=== PATIENT | male | born 1995 | race Caucasian/White ===

== ENCOUNTER 2016-05-12 09:08 | Emergency (ER) | payer OTHER ==
[~2016-05-12] VITALS: Ht 190.5 cm; Wt 86.2 kg
[2016-05-12] MEDS ORDERED: KETOROLAC 30 MG/ML VIAL (J1885) IV ONE (10:15)
[2016-05-12 10:52] LABS: BASO % 0.6 % (0.0-1.0); EOS # 0.2 K/mm3 (0.0-0.50); EOS % 4.1 % (0.0-3.0); LARGE UNSTAINED CELL # 0.1 K/mm3 (0.0-0.4); LARGE UNSTAINED CELL % 2.5 % (0.0-4.0); LYMPH # 1.9 K/mm3 (1.5-6.5); LYMPH % 37.4 % (24.0-44.0); MEAN CORPUSCULAR HEMOGLOBIN 30.3 pg (27.0-33.0); MEAN CORPUSCULAR VOLUME 86.6 fl (80.0-96.0); MONO # 0.3 K/mm3 (0.0-0.8); MONO % 5.2 % (0.0-5.0); NEUTROPHILS # 2.6 K/mm3 (1.8-7.7); NEUTROPHILS % 50.1 % (36.0-66.0); PLATELET COUNT, AUTOMATED 191 k/mm3 (150-450); RED CELL DISTRIBUTION WIDTH 11.8 % (11.5-14.5); WHITE BLOOD COUNT 5.2 K/mm3 (4.0-10.0)
--- NOTE | 2016-05-12 10:52 | REP ---
Chest two views HISTORY: Chest pain Comparison: None A calcified granuloma is present in the left lower lobe. The right lung is clear. The heart is normal in size. The pulmonary vasculature is normal in appearance. The bony structure is intact. IMPRESSION: Old granulomatous disease. Signed by Jose Alfredo Walter MD 05/12/2016 10:43 A
[2016-05-12 11:07] LABS: ANION GAP 6 MEQ/L (8-16); BLOOD UREA NITROGEN 15 MG/DL (7-18); CALCIUM LEVEL 9.3 MG/DL (8.5-10.1); CARBON DIOXIDE LEVEL 31 MEQ/L (21-32); CHLORIDE LEVEL 103 MEQ/L (98-107); CREATININE FOR GFR 0.96 MG/DL (0.70-1.30); GLOMERULAR FILTRATION RATE > 60.0 (>60); GLUCOSE, FASTING 106 MG/DL (70-105); POTASSIUM SERUM 4.5 MEQ/L (3.5-5.1); SODIUM LEVEL 140 MEQ/L (136-145)
[2016-05-12 11:16] VITALS: BP 135/66
--- NOTE | 2016-05-13 10:07 | ECGEPIP ---
Stationary ECG Study [facility] [place] - ED Test Date: 2016-05-12 Pat Name: JULIAN POSADA Department: Room: - Gender: M Section Leader: lion : 1995 Requested By: Cl Carmen Order Number: [id number] Reading MD: Cl Brown Measurements Intervals [place] Rate: 65 P: 40 CO: 126 QRS: -68 QRSD: 119 T: 48 QT: 373 QTc: 389 Interpretive Statements SINUS RHYTHM WITH SINUS ARRHYTHMIA LEFT AXIS DEVIATION RIGHT BUNDLE BRANCH BLOCK NO PRIORS Electronically Signed On 05-13-2016 10:06:47 EDT by Cl Brown
== END 2016-05-12 11:27 | disposition home or self-care (01) ==
LOC: M ED 10:31
DX: R07.9 Chest pain, unspecified (principal); W86.8XXA Exposure to other electric current, initial encounter; Y93.89 Activity, other specified; Y99.8 Other external cause status
CPT/HCPCS: 36415; 71020; 80048; 82550; 82553; 85025; 93005; 96374; 99282; J1885

== ENCOUNTER 2016-11-19 15:49 | Inpatient (IN) | payer OTHER ==
[~2016-11-19] VITALS: Ht 185.4 cm; Wt 83.0 kg
[2016-11-19 18:03] LABS: MEAN CORPUSCULAR HGB CONC 35.1 g/dl (32.0-36.5); MEAN CORPUSCULAR VOLUME 85.6 fl (80.0-96.0); RED CELL DISTRIBUTION WIDTH 12.1 % (11.5-14.5); WHITE BLOOD COUNT 7.1 10^3/uL (4.0-10.0)
[2016-11-19 18:25] LABS: METHADONE URINE NEGATIVE (NEGATIVE)
[2016-11-19 18:34] LABS: ALBUMIN 4.4 GM/DL (3.2-5.2); ALBUMIN/GLOBULIN RATIO 1.22 (1.00-1.93); ALKALINE PHOSPHATASE 97 U/L (45-117); ALT/SGPT 32 U/L (12-78); ANION GAP 7 MEQ/L (8-16); AST/SGOT 23 U/L (15-37); BILIRUBIN,DIRECT 0.1 MG/DL (0.0-0.2); BILIRUBIN,TOTAL 0.4 MG/DL (0.2-1.0); BLOOD UREA NITROGEN 13 MG/DL (7-18); CALCIUM LEVEL 9.3 MG/DL (8.5-10.1); CARBON DIOXIDE LEVEL 30 MEQ/L (21-32); CHLORIDE LEVEL 103 MEQ/L (98-107); CREATININE FOR GFR 0.97 MG/DL (0.70-1.30); GLOMERULAR FILTRATION RATE > 60.0 (>60); GLUCOSE, FASTING 102 MG/DL (70-105); POTASSIUM SERUM 4.2 MEQ/L (3.5-5.1); SODIUM LEVEL 140 MEQ/L (136-145)
[2016-11-19] MEDS ORDERED: QUEtiapine FUMARATE 50 MG TAB PO SCH (21:00)
[2016-11-19] MEDS ORDERED: hydrOXYzine 50 MG TAB PO PRN (22:15)
[2016-11-19] MEDS ORDERED: ACETAMINOPHEN TAB 650MG DOSE (2X325MG) PO PRN (22:15)
[2016-11-19] MEDS ORDERED: MAALOX 30 ML SUSP *UDC PO PRN (22:15)
[2016-11-19] MEDS ORDERED: MOM 30ML SUSPENSION UDC PO PRN (22:15)
[2016-11-19] MEDS ORDERED: traZODone 50 MG TAB PO PRN (22:15)
[2016-11-20 07:04] VITALS: BP 110/56
[2016-11-20] MEDS: ESCITALOPRAM OXALATE 10 MG TAB (LEXAPRO) PO SCH (08:34)
[2016-11-20] MEDS ORDERED: ESCITALOPRAM OXALATE 10 MG TAB (LEXAPRO) PO ONE (09:00)
--- NOTE | 2016-11-20 09:11 | HPEPDOC ---
[facility] Medical History & Physical Date of Admission Nov 19, 2016 History and Physical PCP: [facility] ATTENDING: Dr. Efrain Monson HPI: 21 yo M admitted to [facility] for major depressive disorder with psychotic features, being medically examined today. No acute medical complaints today. Denies any fevers, chills, weakness, fatigue, JOHNSON, CP, SOB, cough, palpitations, abdominal pain, N/V/D or changes in bowel or bladder habits. PMHx: Depression Anxiety History of SI, history of overdose History of alcohol use. Completed WILL. PSHX: Denies SOCHX: Resides in: [place], from [place] Marital Status: Kids: None Employment: Active duty Tobacco use: Denies ETOH: Currently one drink per week Illicit Drugs: Denies IV Drug Use: Denies Tattoos done unprofessionally: Denies FAMHX: Mother: Alive, well Father: Alive, well Siblings: One sister Alive, well Children: None Unexpected deaths due to medical reasons: None. ROS: As noted in HPI, otherwise 11pt ROS of systems reviewed and unremarkable. PE: GEN: 21 yo M, appears stated age. Well-nourished, well developed. No acute distress. Alert and oriented x 3. Flat affect, avoids eye contact. HEENT: Normocephalic, atraumatic. Pupils are equal, round, and reactive to light. Extraocular movements are intact. No nystagmus appreciated. Sclera are nonicteric. Conjunctiva without injection. Nose midline. Nasal turbinates without bogginess. EACs both patent BL. TMs both visualized and mora with good cone of light, no bulging or erythema. No facial asymmetry. Moist mucous membranes. Dentition fair. Pharynx pink and moist, no cobblestoning. Neck supple , trachea midline. No lymphadenopathy or thyromegaly appreciated. CHEST: Regular rate and rhythm, +S1, +S2 LUNGS: Clear to auscultation bilaterally. No wheezes, rales, or rhonchi. Breathing appears symmetric and easy. Patient is speaking in full sentences. No accessory muscle use. ABD: Round, soft, non-tender, non-distended. +Bowel sounds throughout. No rebound or guarding. No costovertebral angle tenderness. EXT: Pulses 2+ bilaterally dorsalis pedis and radial. No lower extremity edema appreciated. SKIN: [place], dry, warm. Capillary refill <2sec. No rashes. NEURO: Alert and oriented x 3. Cranial nerves III-XII are intact. No focal deficits appreciated. EKG: pending. A&P: 21 yo M admitted to [facility] for major depressive disorder with psychotic features 1. Psych. Plan per Psychiatry. Obtain baseline EKG to assure the safety of psychiatric medications as they can prolong the QT interval. 2.Follow up with PCP on discharge. 3. Staff member Ibrahima present throughout exam. Vital Signs Vital Signs Date Time Temp Pulse Resp B/P (MAP) Pulse Ox O2 Delivery O2 Flow Rate FiO2 11/20/16 07:04 96.8 80 16 110/56 (74) 99 Room Air Laboratory Data Labs 24H Laboratory Tests 2 11/19/16 17:39: Anion Gap 7L, Glomerular Filtration Rate > 60.0, Calcium Level 9.3, Aspartate Amino Transf (AST/SGOT) 23, Alanine Aminotransferase (ALT/SGPT) 32, Alkaline Phosphatase 97, Total Bilirubin 0.4, Direct Bilirubin 0.1, Total Protein 8.0, Albumin 4.4, Albumin/Globulin Ratio 1.22, Thyroid Stimulating Hormone (TSH) 1.410, Salicylates Level < 1.7L, Urine Amphetamines Screen NEGATIVE, Urine Benzodiazepines Screen NEGATIVE, Urine Opiates Screen NEGATIVE, Urine Methadone Screen NEGATIVE, Acetaminophen Level < 2.0L, Urine Barbiturates Screen NEGATIVE , Urine Phencyclidine Screen NEGATIVE, Urine Cocaine Metabolite Screen NEGATIVE , Urine Cannabinoids Screen NEGATIVE, Ethyl Alcohol Level < 0.003 CBC/BMP Laboratory Tests 11/19/16 17:39 Red Blood Count 5.43, Mean Corpuscular Volume 85.6, Mean Corpuscular Hemoglobin 30.0, Mean Corpuscular Hemoglobin Concent 35.1, Red Cell Distribution Width 12.1 Home Medications No Active Prescriptions or Reported Meds Allergies Coded Allergies: No Known Allergies (Unverified , 05/12/16) Beatriz Sherwood Nov 20, 2016 09:11
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
[2016-11-20] MEDS ORDERED: hydrOXYzine 25 MG TAB PO PRN (12:00)
[2016-11-20 18:00] VITALS: BP 127/60
--- NOTE | 2016-11-20 19:34 | ECGEPIP ---
Stationary ECG Study [facility] Test Date: 2016-11-20 Pat Name: JULIAN POSADA Department: Room: [place] [address] Gender: M Powerplant Operator: ANGEL : 1995 Requested By: Beatriz Sherwood Order Number: [id number] Reading MD: Jen Aquino Measurements Intervals [place] Rate: 67 P: 51 ID: [id number] QRS: 260 QRSD: 115 T: 61 QT: 365 QTc: 386 Interpretive Statements SINUS RHYTHM INDETERMINATE AXIS INCOMPLETE RIGHT BUNDLE BRANCH BLOCK SIMILAR TO 05/12/16 Electronically Signed On 11-20-2016 19:33:48 EDT by Jen Aquino
[2016-11-20] MEDS ORDERED: QUEtiapine FUMARATE 50 MG TAB PO ONE (21:00)
[2016-11-21 06:41] VITALS: BP 131/67
--- NOTE | 2016-11-21 08:49 | MHIPNPDOC ---
[facility] Progress Note Progress Note DATE OF SERVICE: 11/21/16 HISTORY: day 3 of admission for depression with SI, plan to overdose. VITAL SIGNS: See below. NEW TEST RESULTS: na CURRENT MEDICATIONS: See below. 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 Speech: spontaneous and clear, non-pressured Thought processes: linear Thought content: appropriate Abstract reasoning and computation:good Description of associations:good Description of abnormal or psychotic thoughts: no suicidal thoughts since arriving at the hospital, no plans to harm self or others. reports some AH last night. Judgment: good Insight: fair Orientation: well oriented x 4. Recent and remote memory: intact for interview, impaired when under pressure and feeling stressed. Attention span and concentration: good Fund of knowledge: full. Mood: sad Affect: constricted DIAGNOSES: 1. Depressive disorder, unspecified 2. Alcohol abuse disorder-in remission 3. Adjustment disorder with depressed mood. ASSESSMENT:pt appears a little less depressed but remains in low spirits with constricted affect. He was visited by his and Emiliano last night. 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 He will not have educational benefits so it will be up to him to get funding for school. We discussed that the main thing is that he is safe, happy and healthy and he agrees. Pt in milieu and not secluding in room. Minimal interaction with peers. Still wearing hospital attire unsure if he has clothes here. Reports poor sleep but did not use hydroxyzine. Reviewed meds, purpose and side effects with pt and encouraged him to use hydroxyzine to foster sleep. The same with quetiapine, enc pt to use the medication when the voices start. MANAGEMENT PLAN: support pt through DEISY meeting, help with thoughts regarding staying positive about the future. continue meds and close obs. TIME SPENT: 15 minutes. Vital Signs Vital Signs Date Time Temp Pulse Resp B/P (MAP) Pulse Ox O2 Delivery O2 Flow Rate FiO2 11/21/16 06:41 97.6 82 18 131/67 (88) Room Air 11/20/16 07:04 99 Current Medications Current Medications Acetaminophen (Tylenol Tab) 650 mg Q6HP PRN PO HEADACHE or DISCOMFORT; Start 11/19/16 at 22:15; Stop 12/19/16 at 22:14 Al Hydrox/Mg Hydrox/Simethicone (Mylanta) 30 ml Q4HP PRN PO HEARTBURN/ INDIGESTION; Start 11/19/16 at 22:15; Stop 12/19/16 at 22:14 Escitalopram Oxalate (Lexapro) 10 mg QAM PO Last administered on 11/20/16t 08: 34; Start 11/20/16 at 09:00; Stop 12/20/16 at 08:59 Home Med (Med Rec Complete!) ASDIRECTED XX ; Start 11/19/16 at 21:00; Stop 11/19/16 at 21:00; Status DC Hydroxyzine HCl (Atarax) 25 mg Q6HP PRN PO ANXIETY/AGITATION; Start 11/20/16 at 12:00; Stop 12/20/16 at 11:59 Hydroxyzine HCl (Atarax) 50 mg Q6HP PRN PO ANXIETY/AGITATION; Start 11/19/16 at 22:15; Stop 11/20/16 at 12:00; Status DC Hydroxyzine HCl (Atarax) 50 mg QHSP PRN PO insomnia; Start 11/20/16 at 21:00; Stop 12/20/16 at 20:59 Magnesium Hydroxide (Milk Of Magnesia) 30 ml DAILYPRN PRN PO CONSTIPATION; Start 11/19/16 at 22:15; Stop 12/19/16 at 22:14 Quetiapine Fumarate (SEROquel) 25 mg Q6HP PRN PO psychotic symptoms; Start 11/20/16 at 14:15; Stop 12/20/16 at 14:14 Quetiapine Fumarate (SEROquel) 50 mg QHS PO ; Start 11/19/16 at 21:00; Stop 11/20/16 at 14:09; Status DC Trazodone HCl (Desyrel) 50 mg QHSP PRN PO INSOMNIA; Start 11/19/16 at 22:15; Stop 12/19/16 at 22:14; Status Cancel Allergies Coded Allergies: No Known Allergies (Unverified , 05/12/16) Carolyn Rod Nov 21, 2016 08:49
[2016-11-21] MEDS ORDERED: INFLUENZA QUADRIVALENT PF VACCINE 0.5ML SYRINGE (90686) IM ONE (09:00)
[2016-11-21] MEDS: ESCITALOPRAM OXALATE 10 MG TAB (LEXAPRO) PO SCH (09:29)
[2016-11-21 18:00] VITALS: BP 109/59
[2016-11-21] MEDS: hydrOXYzine 50 MG TAB PO PRN (20:38)
[2016-11-22 07:00] VITALS: BP 121/63
[2016-11-22] MEDS: QUEtiapine FUMARATE 25 MG TAB PO PRN (08:37)
[2016-11-22] MEDS: ESCITALOPRAM OXALATE 10 MG TAB (LEXAPRO) PO SCH (08:37)
--- NOTE | 2016-11-22 15:39 | MHIPNPDOC ---
[facility] Progress Note Progress Note DATE OF SERVICE: 11/22/16 HISTORY: . 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 The patient was admitted due to worsening symptoms of depression and suicidal ideas to jump from a bridge to hurt him. Patient has been isolative, not interacting with peers, not participating in groups. Reported being okay, but he was not able to expand but as denied having suicidal ideas or any side effects of medications. Interview was limited VITAL SIGNS: See below. NEW TEST RESULTS: . CURRENT MEDICATIONS: See below. 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 Judgment: good Insight: fair Orientation: well oriented x 4. Recent and remote memory: intact Attention span and concentration: good Fund of knowledge: full. Mood: sad Affect: constricted DIAGNOSES: 1. Depressive disorder, unspecified versus adjustment disorder with depressed mood 2. Alcohol abuse disorder-in remission MANAGEMENT PLAN: . Continue current medications Supportive therapy, individual, encourage him to participate in groups and in the milieu TIME SPENT: [25] minutes. Vital Signs Vital Signs Date Time Temp Pulse Resp B/P (MAP) Pulse Ox O2 Delivery O2 Flow Rate FiO2 11/22/16 07:00 97.8 92 18 121/63 (82) 11/21/16 06:41 Room Air 11/20/16 07:04 99 Current Medications Current Medications Acetaminophen (Tylenol Tab) 650 mg Q6HP PRN PO HEADACHE or DISCOMFORT; Start 11/19/16 at 22:15; Stop 12/19/16 at 22:14 Al Hydrox/Mg Hydrox/Simethicone (Mylanta) 30 ml Q4HP PRN PO HEARTBURN/ INDIGESTION; Start 11/19/16 at 22:15; Stop 12/19/16 at 22:14 Escitalopram Oxalate (Lexapro) 10 mg QAM PO Last administered on 11/22/16t 08: 37; Start 11/20/16 at 09:00; Stop 12/20/16 at 08:59 Home Med (Med Rec Complete!) ASDIRECTED XX ; Start 11/19/16 at 21:00; Stop 11/19/16 at 21:00; Status DC Hydroxyzine HCl (Atarax) 25 mg Q6HP PRN PO ANXIETY/AGITATION; Start 11/20/16 at 12:00; Stop 12/20/16 at 11:59 Hydroxyzine HCl (Atarax) 50 mg Q6HP PRN PO ANXIETY/AGITATION; Start 11/19/16 at 22:15; Stop 11/20/16 at 12:00; Status DC Hydroxyzine HCl (Atarax) 50 mg QHSP PRN PO insomnia Last administered on 20:38; Start 11/20/16 at 21:00; Stop 12/20/16 at 20:59 Magnesium Hydroxide (Milk Of Magnesia) 30 ml DAILYPRN PRN PO CONSTIPATION; Start 11/19/16 at 22:15; Stop 12/19/16 at 22:14 Quetiapine Fumarate (SEROquel) 25 mg Q6HP PRN PO psychotic symptoms Last administered on 11/22/16 08:37; Start 11/20/16 at 14:15; Stop 12/20/16 at 14:14 Quetiapine Fumarate (SEROquel) 50 mg QHS PO ; Start 11/19/16 at 21:00; Stop 11/20/16 at 14:09; Status DC Trazodone HCl (Desyrel) 50 mg QHSP PRN PO INSOMNIA; Start 11/19/16 at 22:15; Stop 12/19/16 at 22:14; Status Cancel Allergies Coded Allergies: No Known Allergies (Unverified , 05/12/16) ALESSANDRO MENCHACA MD Nov 22, 2016 15:34
[2016-11-22] MEDS: hydrOXYzine 50 MG TAB PO PRN (21:02)
[2016-11-23 06:38] VITALS: BP 117/56
[2016-11-23] MEDS: ESCITALOPRAM OXALATE 10 MG TAB (LEXAPRO) PO SCH (09:00)
--- NOTE | 2016-11-23 14:47 | MHIPNPDOC ---
[facility] Progress Note Progress Note DATE OF SERVICE: 11/23/16 HISTORY: . 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 The patient was admitted due to worsening symptoms of depression and suicidal ideas to jump from a bridge to hurt him. Patient has been isolative, not interacting with peers. He denied having suicidal ideas or any side effects of medications. VITAL SIGNS: See below. NEW TEST RESULTS: . CURRENT MEDICATIONS: See below. 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 Judgment: good Insight: fair Orientation: well oriented x 4. Recent and remote memory: intact Attention span and concentration: good Fund of knowledge: full. Mood: sad Affect: constricted DIAGNOSES: 1. Depressive disorder, unspecified versus adjustment disorder with depressed mood 2. Alcohol abuse disorder-in remission MANAGEMENT PLAN: . Continue current medications Supportive therapy, individual, encourage him to participate in groups and in the milieu TIME SPENT: [25] minutes. Vital Signs Vital Signs Date Time Temp Pulse Resp B/P (MAP) Pulse Ox O2 Delivery O2 Flow Rate FiO2 11/23/16 06:38 97.5 76 16 117/56 (76) 11/21/16 06:41 Room Air 11/20/16 07:04 99 Current Medications Current Medications Acetaminophen (Tylenol Tab) 650 mg Q6HP PRN PO HEADACHE or DISCOMFORT; Start 11/19/16 at 22:15; Stop 12/19/16 at 22:14 Al Hydrox/Mg Hydrox/Simethicone (Mylanta) 30 ml Q4HP PRN PO HEARTBURN/ INDIGESTION; Start 11/19/16 at 22:15; Stop 12/19/16 at 22:14 Escitalopram Oxalate (Lexapro) 10 mg QAM PO Last administered on 11/23/16t 09: 00; Start 11/20/16 at 09:00; Stop 12/20/16 at 08:59 Home Med (Med Rec Complete!) ASDIRECTED XX ; Start 11/19/16 at 21:00; Stop 11/19/16 at 21:00; Status DC Hydroxyzine HCl (Atarax) 25 mg Q6HP PRN PO ANXIETY/AGITATION; Start 11/20/16 at 12:00; Stop 12/20/16 at 11:59 Hydroxyzine HCl (Atarax) 50 mg Q6HP PRN PO ANXIETY/AGITATION; Start 11/19/16 at 22:15; Stop 11/20/16 at 12:00; Status DC Hydroxyzine HCl (Atarax) 50 mg QHSP PRN PO insomnia Last administered on 21:02; Start 11/20/16 at 21:00; Stop 12/20/16 at 20:59 Magnesium Hydroxide (Milk Of Magnesia) 30 ml DAILYPRN PRN PO CONSTIPATION; Start 11/19/16 at 22:15; Stop 12/19/16 at 22:14 Quetiapine Fumarate (SEROquel) 25 mg Q6HP PRN PO psychotic symptoms Last administered on 11/22/16 08:37; Start 11/20/16 at 14:15; Stop 12/20/16 at 14:14 Quetiapine Fumarate (SEROquel) 50 mg QHS PO ; Start 11/19/16 at 21:00; Stop 11/20/16 at 14:09; Status DC Trazodone HCl (Desyrel) 50 mg QHSP PRN PO INSOMNIA; Start 11/19/16 at 22:15; Stop 12/19/16 at 22:14; Status Cancel Allergies Coded Allergies: No Known Allergies (Unverified , 05/12/16) ALESSANDRO MENCHACA MD Nov 23, 2016 14:47
[2016-11-23 18:00] VITALS: BP 130/71
[2016-11-23] MEDS: QUEtiapine FUMARATE 25 MG TAB PO PRN (20:55)
[2016-11-23] MEDS: hydrOXYzine 50 MG TAB PO PRN (20:56)
[2016-11-24 07:11] VITALS: BP 116/58
[2016-11-24] MEDS: ESCITALOPRAM OXALATE 10 MG TAB (LEXAPRO) PO SCH (08:55)
[2016-11-24] MEDS ORDERED: hydrOXYzine 50 MG TAB PO PRN (11:45)
--- NOTE | 2016-11-24 17:23 | MHIPNPDOC ---
[facility] Progress Note Progress Note DATE OF SERVICE: 11/24/16 HISTORY: day 6 of admission VITAL SIGNS: See below. NEW TEST RESULTS: na CURRENT MEDICATIONS: See below. 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 Speech: spontaneous and clear, non-pressured Thought processes: linear Thought content: appropriate Abstract reasoning and computation:good Description of associations:good Description of abnormal or psychotic thoughts: no suicidal thoughts since arriving at the hospital, no plans to harm self or others. denies AH for several days. Judgment: good Insight: fair Orientation: well oriented x 4. Recent and remote memory: intact for interview, impaired when under pressure and feeling stressed. Attention span and concentration: good Fund of knowledge: full. Mood:anxious Affect: has range DIAGNOSES: 1. Depressive disorder, unspecified 2. Alcohol abuse disorder-in remission 3. Adjustment disorder with depressed mood. ASSESSMENT:met with Marty for 1:1 this morning. According to staff was concerned about his eyes being dilated. They have been red and somewhat watery since admission. Pt is taking 2 types of allergy medications and hydroxyzine. This is likely the cause of they eye concern, however his pupils were wnl when seen today. Redness was gone as well but asked PA to examine him as well. In discussing with PA later, she agreed it is likely a reaction to all the antihistamine in his system. pt is waiting for DEISY meeting so he can be discharged from here. He anticipates chaptering out of . He is considering his future options. He would like to return to [place] with his . He would like to go to school. He reports that his auditory hallucinations are much less infrequent and his mood is improving. He is visible in milieu and attending to needs. Pt is going to groups and keeping a positive attitude. MANAGEMENT PLAN: continue meds, increase hs atarax as he is reporting interrupted sleep after the initial 4-5 hours. then frequent awakening every 1- 2 hours, denies dry mouth or so it is not a problem for him. TIME SPENT: 25 minutes. Vital Signs Vital Signs Date Time Temp Pulse Resp B/P (MAP) Pulse Ox O2 Delivery O2 Flow Rate FiO2 11/24/16 07:11 97.6 79 18 116/58 (77) Room Air 11/20/16 07:04 99 Current Medications Current Medications Acetaminophen (Tylenol Tab) 650 mg Q6HP PRN PO HEADACHE or DISCOMFORT; Start 11/19/16 at 22:15; Stop 12/19/16 at 22:14 Al Hydrox/Mg Hydrox/Simethicone (Mylanta) 30 ml Q4HP PRN PO HEARTBURN/ INDIGESTION; Start 11/19/16 at 22:15; Stop 12/19/16 at 22:14 Escitalopram Oxalate (Lexapro) 10 mg QAM PO Last administered on 11/24/16 08: 55; Start 11/20/16 at 09:00; Stop 12/20/16 at 08:59 Home Med (Med Rec Complete!) ASDIRECTED XX ; Start 11/19/16 at 21:00; Stop 11/19/16 at 21:00; Status DC Hydroxyzine HCl (Atarax) 25 mg Q6HP PRN PO ANXIETY/AGITATION; Start 11/20/16 at 12:00; Stop 12/20/16 at 11:59 Hydroxyzine HCl (Atarax) 50 mg Q6HP PRN PO ANXIETY/AGITATION; Start 11/19/16 at 22:15; Stop 11/20/16 at 12:00; Status DC Hydroxyzine HCl (Atarax) 50 mg QHSP PRN PO insomnia Last administered on 20:56; Start 11/20/16 at 21:00; Stop 11/24/16 at 11:43; Status DC Hydroxyzine HCl (Atarax) 100 mg QHSP PRN PO insomnia; Start 11/24/16 at 11:45; Stop 12/24/16 at 11:44 Magnesium Hydroxide (Milk Of Magnesia) 30 ml DAILYPRN PRN PO CONSTIPATION; Start 11/19/16 at 22:15; Stop 12/19/16 at 22:14 Quetiapine Fumarate (SEROquel) 25 mg Q6HP PRN PO psychotic symptoms Last administered on 11/23/16 20:55; Start 11/20/16 at 14:15; Stop 12/20/16 at 14:14 Quetiapine Fumarate (SEROquel) 50 mg QHS PO ; Start 11/19/16 at 21:00; Stop 11/20/16 at 14:09; Status DC Trazodone HCl (Desyrel) 50 mg QHSP PRN PO INSOMNIA; Start 11/19/16 at 22:15; Stop 12/19/16 at 22:14; Status Cancel Allergies Coded Allergies: No Known Allergies (Unverified , 05/12/16) Carolyn Rod Nov 24, 2016 17:23
[2016-11-24 18:00] VITALS: BP 116/55
[2016-11-24] MEDS: QUEtiapine FUMARATE 25 MG TAB PO PRN (21:00)
[2016-11-25 06:51] VITALS: BP 142/65
[2016-11-25] MEDS: ESCITALOPRAM OXALATE 10 MG TAB (LEXAPRO) PO SCH (08:01)
--- NOTE | 2016-11-25 11:29 | MHIPNPDOC ---
[facility] Progress Note Progress Note DATE OF SERVICE: 11/25/16 HISTORY: day 7 of admission for SI and depression. VITAL SIGNS: See below. NEW TEST RESULTS: na CURRENT MEDICATIONS: See below. 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 Speech: spontaneous and clear, non-pressured Thought processes: linear Thought content: appropriate Abstract reasoning and computation:good Description of associations:good Description of abnormal or psychotic thoughts: no suicidal thoughts since arriving at the hospital, no plans to harm self or others. denies AH for several days. Judgment: good Insight: fair Orientation: well oriented x 4. Recent and remote memory: intact for interview, impaired when under pressure and feeling stressed. Attention span and concentration: good Fund of knowledge: full. Mood:anxious Affect: has range DIAGNOSES: 1. Depressive disorder, unspecified 2. Alcohol abuse disorder-in remission 3. Adjustment disorder with depressed mood. ASSESSMENT:pt participated in treatment planning, goals and objectives discussed and he is making progress. His mood is less depression at 4/10 and anxiety is scored the same for him. He is mostly nervous about the DEISY meeting that we are trying to arrange. His eyes are not read today or dilated. Pt received Seroquel at hs last night instead of hydroxyzine. Unsure why this happened. He is only to get the Seroquel for auditory hallucinations. Dose insignificant for sleep, but hydroxyzine increased for this purpose. If pt does get discharged today he will need to try the sleeping medication at home and let his outpatient providers know abut his sleeping situation. Pt denies voices/visions over the past 48 hours. Pt denies suicidal thoughts. MANAGEMENT PLAN: continue meds, dispense prns appropriately, continue close observation, arrange DEISY WILL. TIME SPENT:15 minutes. Vital Signs Vital Signs Date Time Temp Pulse Resp B/P (MAP) Pulse Ox O2 Delivery O2 Flow Rate FiO2 11/25/16 06:51 97.3 70 14 142/65 (90) Room Air 11/20/16 07:04 99 Current Medications Current Medications Acetaminophen (Tylenol Tab) 650 mg Q6HP PRN PO HEADACHE or DISCOMFORT; Start 11/19/16 at 22:15; Stop 12/19/16 at 22:14 Al Hydrox/Mg Hydrox/Simethicone (Mylanta) 30 ml Q4HP PRN PO HEARTBURN/ INDIGESTION; Start 11/19/16 at 22:15; Stop 12/19/16 at 22:14 Escitalopram Oxalate (Lexapro) 10 mg QAM PO Last administered on 11/25/16 08: 01; Start 11/20/16 at 09:00; Stop 12/20/16 at 08:59 Home Med (Med Rec Complete!) ASDIRECTED XX ; Start 11/19/16 at 21:00; Stop 11/19/16 at 21:00; Status DC Hydroxyzine HCl (Atarax) 25 mg Q6HP PRN PO ANXIETY/AGITATION; Start 11/20/16 at 12:00; Stop 12/20/16 at 11:59 Hydroxyzine HCl (Atarax) 50 mg Q6HP PRN PO ANXIETY/AGITATION; Start 11/19/16 at 22:15; Stop 11/20/16 at 12:00; Status DC Hydroxyzine HCl (Atarax) 50 mg QHSP PRN PO insomnia Last administered on 20:56; Start 11/20/16 at 21:00; Stop 11/24/16 at 11:43; Status DC Hydroxyzine HCl (Atarax) 100 mg QHSP PRN PO insomnia; Start 11/24/16 at 11:45; Stop 12/24/16 at 11:44 Magnesium Hydroxide (Milk Of Magnesia) 30 ml DAILYPRN PRN PO CONSTIPATION; Start 11/19/16 at 22:15; Stop 12/19/16 at 22:14 Quetiapine Fumarate (SEROquel) 25 mg Q6HP PRN PO psychotic symptoms Last administered on 11/24/16 21:00; Start 11/20/16 at 14:15; Stop 12/20/16 at 14:14 Quetiapine Fumarate (SEROquel) 50 mg QHS PO ; Start 11/19/16 at 21:00; Stop 11/20/16 at 14:09; Status DC Trazodone HCl (Desyrel) 50 mg QHSP PRN PO INSOMNIA; Start 11/19/16 at 22:15; Stop 11/3/17 at 22:14; Status Cancel Allergies Coded Allergies: No Known Allergies (Unverified , 05/12/16) Carolyn Rod Nov 25, 2016 11:29
[2016-11-25] MEDS ORDERED: HYDR-3363 PO ×2 (12:41→13:17)
[2016-11-25] MEDS ORDERED: QUET1TAB7 PO ×2 (12:41→13:17)
[2016-11-25] MEDS ORDERED: ESCI10TA2 PO ×2 (12:41→13:17)
[2016-11-25] MEDS ORDERED: HYDRO50TAB PO ×2 (12:41→13:17)
--- NOTE | 2016-11-25 12:44 | MHDSPDOC ---
[facility] Discharge Summary Discharge Summary DATE OF ADMISSION: Nov 19, 2016 at 22:02 DATE OF DISCHARGE: 11/25/16 @ 1330 DISCHARGE DIAGNOSES: 1. Depressive disorder, unspecified 2. Alcohol abuse disorder-in remission 3. Adjustment disorder with depressed mood. REASON FOR ADMISSION: Patient is a 21-year-old male, who is lives with his and 4 dogs. He was raised in [place]. 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 berated him in the presence of his peers for his suicide attempt and hospitalization. He was following a course that would lead to med boarding out of the but he asked to stop this 2 months ago. Recently the demands at work have caused him to consider jumping to his in the [place]. He was on Lexapro but this was stopped some time ago. He reports his therapy work with Mr. [place] is helpful to his concerns. Pt admits to some alcohol abuse prior to and early on after joining the . He started drinking beer around age 16 on the weekends. When he was older he was drinking vodka and would have 8-10 shots in one evening. He denies being intoxicated when he overdosed. He denies being intoxicated when he had thoughts of jumping in the [place]. Pt has completed the WILL program but it is not individualized care. it is mostly general education about alcohol and it's effects. The pt has not abused alcohol since he completed the WILL program. CONSULTANTS INVOLVED: Pharmacy, nursing, medicine, psychiatry TREATMENT AND PROGRESS ON THE UNIT : PT was nervous and anxious on the unit initially, keeping to self and staying in room. With encouragement he began attending programming and was seen socializing in the milieu. It seemed to help his depression and anxiety to be busy doing things. He reported several occasions at home where he heard things and saw people that no one else around him saw or heard. This was frightening to him. Exploring this with Marty it was apparent he would have these disturbances when he was under pressure or felt work related stress. However there was a time or two when he heard voices while on the unit. He was started on Lexapro which was prescribed for him recently but discontinued as he appeared to be better. pt should remain on the medication for 12-18 months before tapering off. HOSPITAL COURSE: pt was also started on prn sertraline for psychotic symptoms. The medication is very low dose and is effective for his needs. He was provided anxiolytic medication in the form of Atarax for anxiety as it is effective without being habit forming or addicting. it has worked well for Marty. He takes a much larger dose of the medication for insomnia. He did not take a dose for insomnia while on the unit so it's effectiveness cannot be stated at this time. Pt attended to hygiene needs and got along well with staff and peers. His visited. He talked with medicine about his allergies and received 2 different types of medication for these. Pt reported good sleep most nights. DISCHARGE ASSESSMENT: pt is to be discharged following DEISY meeting today. He knows he will be chaptered out of the . He had hoped they would resume the Medical Board review but since he stopped that process 2 months ago they have not resumed it. 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 Return home to and await his departure from the [employer]. At that time he will likely return to [place] and hopes to attend college. Pt is free of thoughts to harm himself or others. he is stable in mood and not experiencing psychotic symptoms. 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 Speech: spontaneous and clear, non-pressured Thought processes: linear Thought content: appropriate Abstract reasoning and computation:good Description of associations:good Description of abnormal or psychotic thoughts: no suicidal thoughts since arriving at the hospital, no plans to harm self or others. denies AH for several days. Judgment: good Insight: fair Orientation: well oriented x 4. Recent and remote memory: intact for interview, impaired when under pressure and feeling stressed. Attention span and concentration: good Fund of knowledge: full. Mood:anxious Affect: has range MEDICATIONS ON DISCHARGE: -quetiapine- prn for psychotic symptoms - lexapro- for depression/anxiety -hydroxyzine 25 mg as needed for anxiety -hydroxyzie 50 mg - take 2 tabs as needed for insomnia PLAN/FOLLOWUP ARRANGEMENTS: [facility] The amount of time spent in the coordination of care for this patient was approximately 30 minutes. Vital Signs/I&Os Vital Signs Date Time Temp Pulse Resp B/P (MAP) Pulse Ox O2 Delivery O2 Flow Rate FiO2 11/25/16 06:51 97.3 70 14 142/65 (90) Room Air 11/20/16 07:04 99 Medications Scheduled Escitalopram Oxalate (Escitalopram Oxalate) 10 Mg Tab, 10 MG PO QAM for MOOD for 7 Days, #7 do not stop med abruptly Scheduled PRN Hydroxyzine HCl (Hydroxyzine HCl) 50 Mg Tab, 100 MG PO QHSP PRN for insomnia for 7 Days, #14 take 2 tabs at bedtime as needed for insomnia Hydroxyzine HCl (Hydroxyzine HCl) 25 Mg Tab, 25 MG PO Q6HP PRN for ANXIETY/ AGITATION for 7 Days, #28 take as needed for anxiety up to 4 x a day. Quetiapine Fumerate (Quetiapine Fumarate) 25 Mg Tab, 25 MG PO Q6HP PRN for psychotic symptoms for 7 Days, #28 take as needed up to 4x a day for visions or voices. Allergies Coded Allergies: No Known Allergies (Unverified , 05/12/16) Carolyn Rod Nov 25, 2016 12:44
== END 2016-11-25 13:45 | disposition home or self-care (01) | DRG 881 ==
LOC: M ED 15:49 → M ED INP 22:02 → M PSY 22:57
PROVIDERS: ADMIT Psychiatry & Neurology Psychiatry; ATTEND Psychiatry & Neurology Psychiatry
DX: F32.9 Major depressive disorder, single episode, unspecified (principal); F43.21 Adjustment disorder with depressed mood; F10.11 Alcohol abuse, in remission; Z81.8 Family history of other mental and behavioral disorders

== ENCOUNTER → 2017-01-20 | Outpatient (CLI) | payer OTHER ==
[~2017-01-20] MED LIST: ESCI10TA2 PO; HYDR-3363 PO; HYDRO50TAB PO; PATIENT COMMENT; QUET1TAB7 PO
--- NOTE | 2017-01-20 20:00 | ECHO ---
DATE OF PROCEDURE: 01/20/2017 REFERRING PHYSICIAN: Onel Damian MD INDICATION: Right bundle branch block. HEIGHT: 180 cm WEIGHT: 92 kg DIMENSIONS IVS: 0.8 LV: 5.0 LVPW: 0.9 LA: 3.3 Aorta: 2.8 FINDINGS: Study is of good technical quality. The patient is in sinus rhythm. Left ventricle is normal size and systolic function with estimated LVEF 60-65%. No segmental wall motion abnormalities are appreciated. Right ventricle is also normal size and systolic function. Both atria appear normal. Left atrium volume index is 21.7 mm per meter square which is within normal limits. Aortic, mitral, tricuspid and pulmonic valves were all well seen and appear normal. No pericardial effusion is noted. Aortic root, aortic arch and visualized segment of abdominal aorta all appear normal. Doppler interrogation reveals no aortic stenosis or insufficiency. There is also no significant mitral stenosis or insufficiency. There is trace tricuspid insufficiency. Calculated pulmonary artery pressure is within normal limits. Pulmonic valve is functionally competent. Mitral inflow pattern and tissue Doppler imaging of mitral annulus revealed normal diastolic function of left ventricle (mitral E velocity 79, A velocity 40, E prime septal 10.4 and E prime lateral 13.8 cm/s). CONCLUSIONS: 1. Normal left ventricle (LV) size, systolic and diastolic function. 2. No significant valvular disease. 3. Normal central venous pressure and likely normal pulmonary artery pressure. 4. Essentially normal echocardiogram. COMMENT Subacute bacterial endocarditis (SBE) prophylaxis is not recommended.
== END ==
LOC: M CARPUL 08:31
PROVIDERS: ATTEND Physician Assistant
DX: R06.02 Shortness of breath (principal)

== ENCOUNTER 2017-01-21 12:06 | Inpatient (IN) | payer OTHER ==
[~2017-01-21] VITALS: Ht 185.4 cm; Wt 91.0 kg
[~2017-01-21 12:06] MED LIST changes: -PATIENT COMMENT
[2017-01-21 12:51] LABS: BASO # 0.1 10^3/uL (0.0-0.2); BASO % 0.9 % (0.0-1.0); EOS # 0.2 10^3/uL (0.0-0.50); EOS % 3.2 % (0.0-3.0); IMMATURE GRANULOCYTE % 0.2 % (0-0); LYMPH # 1.9 10^3/uL (1.5-6.5); LYMPH % 33.4 % (24.0-44.0); MEAN CORPUSCULAR HEMOGLOBIN 29.8 pg (27.0-33.0); MEAN CORPUSCULAR HGB CONC 35.4 g/dl (32.0-36.5); MEAN CORPUSCULAR VOLUME 84.2 fl (80.0-96.0); MONO # 0.4 10^3/uL (0.0-0.8); NEUTROPHILS # 3.1 10^3/uL (1.8-7.7); NEUTROPHILS % 55.3 % (36.0-66.0); PLATELET COUNT, AUTOMATED 205 10^3/uL (150-450); RED CELL DISTRIBUTION WIDTH 11.9 % (11.5-14.5); WHITE BLOOD COUNT 5.5 10^3/uL (4.0-10.0)
[2017-01-21 13:17] LABS: METHADONE URINE NEGATIVE (NEGATIVE)
[2017-01-21 13:24] LABS: ALBUMIN/GLOBULIN RATIO 1.21 (1.00-1.93); ALKALINE PHOSPHATASE 101 U/L (45-117); ALT/SGPT 27 U/L (12-78); ANION GAP 8 MEQ/L (8-16); AST/SGOT 28 U/L (7-37); BILIRUBIN,DIRECT 0.1 MG/DL (0.0-0.2); BILIRUBIN,TOTAL 0.4 MG/DL (0.2-1.0); BLOOD UREA NITROGEN 13 MG/DL (7-18); CARBON DIOXIDE LEVEL 27 MEQ/L (21-32); CHLORIDE LEVEL 106 MEQ/L (98-107); GLOMERULAR FILTRATION RATE > 60.0 (>60); GLUCOSE, FASTING 102 MG/DL (70-105); POTASSIUM SERUM 3.7 MEQ/L (3.5-5.1); SODIUM LEVEL 141 MEQ/L (136-145); TOTAL PROTEIN 7.3 GM/DL (6.4-8.2)
--- NOTE | 2017-01-21 19:03 | ECGEPIP ---
Stationary ECG Study [facility] - ED Test Date: 2017-01-21 Pat Name: JULIAN POSADA Department: Room: - Gender: M Manager Payment: : 1995 Requested By: Kenia Davila Order Number: [id number] Reading MD: Cl Brown Measurements Intervals [place] Rate: 59 P: 23 DE: 153 QRS: 37 QRSD: 116 T: 36 QT: 393 QTc: 392 Interpretive Statements SINUS BRADYCARDIA INDETERMINATE AXIS INCOMPLETE RIGHT BUNDLE BRANCH BLOCK SIMILAR TO 11/20/16 Electronically Signed On 01-21-2017 19:02:57 EST by Cl Brown
[2017-01-21] MEDS ORDERED: MAALOX 30 ML SUSP *UDC PO PRN (20:45)
[2017-01-21] MEDS ORDERED: ACETAMINOPHEN TAB 650MG DOSE (2X325MG) PO PRN (20:45)
[2017-01-21] MEDS ORDERED: MOM 30ML SUSPENSION UDC PO PRN (20:45)
[2017-01-21] MEDS ORDERED: QUET1TAB7 PO (21:02)
[2017-01-21] MEDS ORDERED: ESCI10TA2 PO (21:02)
[2017-01-21] MEDS ORDERED: PATIENT COMMENT (21:02)
[2017-01-22 07:28] VITALS: BP 117/64
[2017-01-22] MEDS ORDERED: QUET1TAB7 PO (08:50)
[2017-01-22] MEDS ORDERED: QUEtiapine FUMARATE 25 MG TAB PO PRN (11:15)
[2017-01-22] MEDS: lamoTRIgine 25 MG TAB PO SCH ×2 (11:23→21:38)
[2017-01-22] MEDS: ESCITALOPRAM OXALATE 10 MG TAB (LEXAPRO) PO SCH (11:23)
--- NOTE | 2017-01-22 12:55 | MHHPE ---
DATE OF ADMISSION: 01/21/2017 LEGAL STATUS AT ADMISSION: 9.39 legal status. CHIEF COMPLAINT: "I have been feeling very depressed and I have suicidal thoughts". HISTORY OF PRESENT ILLNESS: 21-year-old male with history of major depressive disorder with psychotic features admitted to our unit on a 9.39 legal status. According to the record, the patient was brought to our emergency department to be evaluated for the above. Apparently, he was having suicidal thoughts before admission. He picked up a knife and threatened to kill himself while he was at home. His was able to talk the patient into giving her the knife and she called the police. The patient reports that while his was outside to meet the police he took three tablets of Seroquel as he was "hearing voices" and "I wanted it to stop". He said he flushed the remaining down the toilet. He denied to the ED staff that he this was a suicide attempt, but that he took the Seroquel as directed by his outpatient provider when he has the voices. During the interview today, the patient reports that he has frequent mood swings. They are short in time. The patient reports that all of a sudden mostly of the time out of the blue he feels depressed. He will stay depressed for a few hours and then return to normal mood. He also reports that he would switch to a "angry state". He says that many times it is because of his negative thinking or feeling frustrated. Again, this feeling of anger will last for about an hour. The patient also reports feeling frustrated with personnel at his unit because "they take my illness as a joke". "Last time when I was discharged from the hospital they asked how my vacation was". The patient says that he is in the process of being medically boarded. The patient says that he has auditory hallucinations. He says that he hears males and female and he cannot recognize who the voices belong to. They are not command in nature. They are not mean to him. He has the voices approximately every other day. The patient also reports that during his first admission to our unit he was having visual hallucinations, but the medications helped him. He is currently taking Lexapro 10 mg by mouth every morning, Seroquel 25 mg by mouth every 6 hours as needed for anxiety, agitation and auditory hallucinations and takes another medication at bedtime, but does not remember the name and it is not in our records. PAST MEDICAL HISTORY: The patient denies any acute medical problems except back pain. PAST PSYCHIATRIC HISTORY: The patient reports that he has been diagnosed of major depressive disorder with psychotic features. He has been suffering from depression for approximately one year. FAMILY HISTORY: Negative for psychiatric problems. SUBSTANCE ABUSE HISTORY: The patient denies any current problems with drugs and alcohol. He finished an WILL program because he was drinking alcohol. SOCIAL HISTORY: The patient denies any abuse or neglect during childhood. He finished high school. He has been in the [employer] for approximately 2 years. He has been for a year and a half with no children. PSYCHIATRIC REVIEW OF SYSTEMS: Anxiety Disorder: The patient feels anxious, but denies panic, agoraphobia, obsessive compulsive disorder (OCD), washing hands repeatedly, checking things over and over. Somatization Disorder: Screening for pain, conversion, GI, or sexual symptoms is negative. Eating Disorder: Screening for dieting, use of laxative, eating in binges is negative. Cognitive Disorder: Memory, attention, concentration and general information is negative for cognitive disorder. PHYSICAL EXAMINATION: As per physician dental assistant teacher. LABS AT ADMISSION: CBC is unremarkable. CMP within normal limits, except total creatinine kinase of 469. Blood alcohol level is negative. Urine drug screen is negative. MENTAL STATUS EXAMINATION: The patient is dressed in [facility]. The patient is cooperative. Speech is soft and monotone. He has poor eye contact. Mood is anxious and depressed. Affect is restricted. The patient is oriented to time, place, person and situation. Maintains attention and concentration fairly. Instant recall, recent and remote memory are intact. Thought processes are coherent, logical and goal directed. The patient has auditory hallucinations, denies visual hallucination. No paranoid, persecutory, somatic, grandiose or jain delusions. The is reporting suicidal ideation, but not homicidal thoughts. Judgment and insight limited. DIAGNOSES: Noble I: Major depressive disorder with psychotic features. Rule out bipolar disorder. Alcohol abuse by history, in remission. Noble II: Deferred. Noble III: None acute. INITIAL TREATMENT PLAN: The patient was admitted on a 9.39 legal status. Complete history was obtained. With his permission, family with be contacted and database will be expanded. His medication regime will be reviewed and changed accordingly. He will be provided with protected environment. He will be treated with individual, group and milieu therapy. He will also receive supportive psychoeducation. Discharge planning will commence immediately. Length of stay will be between 5-7 days. Outpatient followup will be strongly recommended. The treatment plan will focus initially on depression and risk for suicide.
[2017-01-22 18:00] VITALS: BP 127/65
[2017-01-22] MEDS: traZODone 50 MG TAB PO PRN (21:38)
[2017-01-23 06:35] VITALS: BP 144/63
[2017-01-23] MEDS: ESCITALOPRAM OXALATE 10 MG TAB (LEXAPRO) PO SCH (09:49)
[2017-01-23] MEDS: lamoTRIgine 25 MG TAB PO SCH ×2 (09:49→22:09)
--- NOTE | 2017-01-23 17:26 | MHIPN ---
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 Patient picked up a knife and threatened to kill himself while he was at home. His was able to talk the patient into giving her the knife and she called the police. MEDICATIONS: - Lexapro 10 mg by mouth every morning - Seroquel 25 mg by mouth three times a day as needed for anxiety and agitation - Lamictal 25 mg by mouth twice a day - trazodone 50 mg by mouth at bedtime as needed for insomnia. SUBJECTIVE: "I am feeling about the same." OBJECTIVE: No major changes since yesterday at intake. Patient continues depressed with intermittent suicidal thoughts. Patient has psychomotor retardation, sad restricted facial expression, is interacting very little with other patient's and staff. Patient says he slept better last night and his auditory hallucinations have improved. MENTAL STATUS EXAMINATION: Patient is dressed in [facility]. Patient is cooperative. Has fair eye contact. His speech is slow and monotone. Mood is depressed and anxious. Affect is restricted. No delusions. Auditory hallucinations have improved. Memory, attention and concentration are fair. Patient is able to contract for safety while in the hospital. Insight and judgment is limited. ASSESSMENT: 1. Depression. 2. Suicidal ideation. 3. Auditory hallucinations. PLAN: 1. Continue Lexapro 10 mg by mouth every morning. 2. Continue Lamictal 25 mg by mouth twice a day. 3. Continue trazodone 50 mg by mouth at bedtime as needed for insomnia. 4. Continue Seroquel 25 mg by mouth three times a day as needed for anxiety and agitation.
[2017-01-23 18:00] VITALS: BP 130/61
[2017-01-23] MEDS: traZODone 50 MG TAB PO PRN (22:52)
[2017-01-24 06:36] VITALS: BP 127/61
[2017-01-24] MEDS: ESCITALOPRAM OXALATE 10 MG TAB (LEXAPRO) PO SCH (10:05)
[2017-01-24] MEDS: lamoTRIgine 25 MG TAB PO SCH ×2 (10:05→20:56)
--- NOTE | 2017-01-24 11:05 | MHIPNPDOC ---
[facility] Progress Note Progress Note DATE OF SERVICE: 01/24/17 HISTORY: Patient states he no longer feels suicidal, denies feeling depressed. Patient slept 7+ hours last night, reports good appetite. Currently denies AH. Denies side effects. Patient has been meeting with his every day. VITAL SIGNS: See below. NEW TEST RESULTS: NA CURRENT MEDICATIONS: See below. MENTAL STATUS EXAMINATION: Behavior: cooperative, slightly odd but related Speech: anxious tone, normal volume, restricted tone Thought processes including: linear Thought content: appropriate to conversation Judgment: fair Insight: fair Orientation: grossly oriented Mood: better Affect: anxious, restricted range ASSESSMENT: 1. Depression. 2. Suicidal ideation. 3. Auditory hallucinations. PLAN: 1. Continue Lexapro 10 mg by mouth every morning. 2. Continue Lamictal 25 mg by mouth twice a day. 3. Continue trazodone 50 mg by mouth at bedtime as needed for insomnia. 4. Continue Seroquel 25 mg by mouth TID PRN for anxiety and agitation. 25 minutes spent on pt Vital Signs Vital Signs Date Time Temp Pulse Resp B/P (MAP) Pulse Ox O2 Delivery O2 Flow Rate FiO2 01/24/17 06:36 98.9 67 16 127/61 (83) 01/21/17 22:58 96 Room Air Current Medications Current Medications Acetaminophen (Tylenol Tab) 650 mg Q6HP PRN PO HEADACHE or DISCOMFORT; Start 01/21/17 at 20:45; Stop 02/20/17 at 20:44 Al Hydrox/Mg Hydrox/Simethicone (Mylanta) 30 ml Q4HP PRN PO HEARTBURN/ INDIGESTION; Start 01/21/17 at 20:45; Stop 02/20/17 at 20:44 Escitalopram Oxalate (Lexapro) 10 mg DAILY PO Last administered on 01/24/17 10 :05; Start 01/22/17 at 09:00; Stop 02/21/17 at 08:59 Home Med (Med Rec Complete!) ASDIRECTED XX ; Start 01/21/17 at 21:15; Stop 01/21/17 at 21:15; Status DC Lamotrigine (LaMICtal) 25 mg BID PO Last administered on 01/24/17 10:05; Start 01/22/17 at 09:00; Stop 02/21/17 at 08:59 Magnesium Hydroxide (Milk Of Magnesia) 30 ml DAILYPRN PRN PO CONSTIPATION; Start 01/21/17 at 20:45; Stop 02/20/17 at 20:44 Quetiapine Fumarate (SEROquel) 25 mg TID PRN PO ANXIETY/AGITATION; Start at 11:15; Stop 02/21/17 at 11:14 Trazodone HCl (Desyrel) 50 mg QHSP PRN PO INSOMNIA Last administered on t 22:52; Start 01/21/17 at 20:45; Stop 02/20/17 at 20:44 Allergies Coded Allergies: No Known Allergies (Unverified , 05/12/16) AYALA GILL MD Jan 24, 2017 11:05
[2017-01-24 18:00] VITALS: BP 144/70
[2017-01-25 06:45] VITALS: BP 112/58
[2017-01-25] MEDS: ESCITALOPRAM OXALATE 10 MG TAB (LEXAPRO) PO SCH (09:02)
[2017-01-25] MEDS: lamoTRIgine 25 MG TAB PO SCH (09:02)
--- NOTE | 2017-01-25 10:52 | HPE ---
DATE OF ADMISSION: 01/21/2017 Please refer to the psychiatric history and evaluation for further details on this admission. This examination and history is intended for medical issues which may need treatment, followup or consultation on this 21-year-old male. ALLERGIES: No known allergies. PRIMARY CARE PROVIDER: [facility]. SOCIAL HISTORY: He lives in [place]. He is from [place]. He is . He is an active duty soldier. Drinks none since November 2016. Recreational drug use - none. FAMILY HISTORY: Noncontributory. PAST MEDICAL HISTORY: 1. Depression. 2. Anxiety. 3. History of suicidal ideation. 4. History of overdose. 5. History of alcohol abuse, he has completed the WILL. PAST SURGICAL HISTORY: Negative. LABORATORY STUDIES: WBC 5.5, hemoglobin 14.9, hematocrit 42.1 and platelets 205. Electrolytes were normal. BUN 13, creatinine 0.9. CK was slightly elevated at 469. Toxicology was negative. HOME MEDICATIONS: - Lexapro 10 mg by mouth daily - Seroquel 25 mg by mouth every 6 hours as needed for psychosis REVIEW OF SYSTEMS: Ten systems review was done and was unremarkable. PHYSICAL EXAMINATION: 21-year-old cooperative male in no acute distress. Height 73 inches. Weight 94.5 kg. Body mass index (BMI) 27.5. The patient is alert and oriented times three. Pupils equal and react to light. Extraocular movements intact. Cornea and sclera clear. Conjunctiva normal. No facial asymmetry. Pharynx, tongue and gums pink and moist. Tongue is midline. Neck is supple, without lymphadenopathy. No thyromegaly. No goiter. Carotids 2+, without bruit. Chest clear to auscultation, without wheeze or retraction. Heart is regular. Abdomen benign. Bowel sounds positive. Genitourinary ()/Rectal: Not done. Extremities show equal strength, full range of motion. No cyanosis, clubbing or edema. Peripheral pulses equal and palpable bilaterally. Skin is warm and dry. IMPRESSION AND PLAN: 1. Psychiatric. Plan per psychiatry. 2. No acute medical issues.
--- NOTE | 2017-01-25 16:34 | MHIPNPDOC ---
[facility] Progress Note Progress Note DATE OF SERVICE: 01/25/17 HISTORY: Patient states he is doing well, reports good sleep, denies side effects from medications, patient denies current AVH, did not endorse SI intent and plan. Patient was socializing on the unit. Patient goes into more detail about his illness. Patient has heard intermittent AH over the last year, mostly of incoherent voices. Occasional AH of human figures. AVH triggered by stress, not associated with shakira. Patient describes episodes lasting 3 days or so in which he would be hyperactive, elated, hyperverbal, grandiose, with little to no sleep. These episodes started about a year ago as well, onset after his psychotic symptoms. Patient was on outpatient latuda 20 mg qhs, and was doing well on it, but missed a dose, and began having AH with SI the day before admission. VITAL SIGNS: See below. NEW TEST RESULTS: NA CURRENT MEDICATIONS: See below. MENTAL STATUS EXAMINATION: Behavior: cooperative, slightly odd but related Speech: anxious and restricted tone, normal volume Thought processes including: linear Thought content: appropriate to conversation Judgment: fair Insight: fair Orientation: grossly oriented Mood: better Affect: anxious, restricted range ASSESSMENT: 1. Depression. 2. Suicidal ideation. 3. Auditory hallucinations. PLAN: 1. Discontinue lamictal and lexapro 2. Begin latuda 20 mg qhs, will raise to 40 mg qhs tomorrow 3. Continue trazodone 50 mg by mouth at bedtime as needed for insomnia. 4. Continue Seroquel 25 mg by mouth TID PRN for anxiety and agitation. 25 minutes spent on pt Vital Signs Vital Signs Date Time Temp Pulse Resp B/P (MAP) Pulse Ox O2 Delivery O2 Flow Rate FiO2 01/25/17 06:45 97.4 66 12 112/58 (76) 01/21/17 22:58 96 Room Air Laboratory Data 24H Labs Laboratory Tests 2 01/25/17 06:52: Total Creatine Kinase 180 Current Medications Current Medications Acetaminophen (Tylenol Tab) 650 mg Q6HP PRN PO HEADACHE or DISCOMFORT; Start 01/21/17 at 20:45; Stop 02/20/17 at 20:44 Al Hydrox/Mg Hydrox/Simethicone (Mylanta) 30 ml Q4HP PRN PO HEARTBURN/ INDIGESTION; Start 12/6/17 at 20:45; Stop 02/20/17 at 20:44 Escitalopram Oxalate (Lexapro) 10 mg DAILY PO Last administered on 01/25/17 09:02; Start 01/22/17 at 09:00; Stop 02/21/17 at 08:59 Home Med (Med Rec Complete!) ASDIRECTED XX ; Start 01/21/17 at 21:15; Stop 01/21/17 at 21:15; Status DC Lamotrigine (LaMICtal) 25 mg BID PO Last administered on 01/25/17 09:02; Start 01/22/17 at 09:00; Stop 02/21/17 at 08:59 Magnesium Hydroxide (Milk Of Magnesia) 30 ml DAILYPRN PRN PO CONSTIPATION; Start 01/21/17 at 20:45; Stop 02/20/17 at 20:44 Quetiapine Fumarate (SEROquel) 25 mg TID PRN PO ANXIETY/AGITATION; Start at 11:15; Stop 02/21/17 at 11:14 Trazodone HCl (Desyrel) 50 mg QHSP PRN PO INSOMNIA Last administered on 22:52; Start 01/21/17 at 20:45; Stop 02/20/17 at 20:44 Allergies Coded Allergies: No Known Allergies (Unverified , 05/12/16) AYALA GILL MD Jan 25, 2017 16:34
[2017-01-25 18:00] VITALS: BP 143/67
[2017-01-25] MEDS ORDERED: LURASIDONE 20 MG TAB (LATUDA) PO SCH ×2 (21:00)
[2017-01-26 06:00] VITALS: BP 125/62
--- NOTE | 2017-01-26 13:25 | MHIPNPDOC ---
[facility] Progress Note Progress Note DATE OF SERVICE: 01/26/17 HISTORY: Patient is tolerating the latuda well, denies side effects. Reports 6 hours of sleep per night, denies depression, denies SI intent and plan. VITAL SIGNS: See below. NEW TEST RESULTS: NA CURRENT MEDICATIONS: See below. MENTAL STATUS EXAMINATION: Behavior: cooperative, slightly odd but related Speech: restricted tone, normal volume Thought processes including: linear Thought content: appropriate to conversation Judgment: fair Insight: fair Orientation: grossly oriented Mood: good Affect: anxious, restricted range Diagnosis 1. Schizoaffective disorder 2. SI PLAN: - Raise latuda to 40 mg qhs for psychosis - Continue trazodone 50 mg by mouth at bedtime as needed for insomnia. - PRNs: MOM, mylanta, tylenol 25 minutes spent on pt Vital Signs Vital Signs Date Time Temp Pulse Resp B/P (MAP) Pulse Ox O2 Delivery O2 Flow Rate FiO2 01/26/17 06:00 97.1 63 16 125/62 (83) 01/21/17 22:58 96 Room Air Current Medications Current Medications Acetaminophen (Tylenol Tab) 650 mg Q6HP PRN PO HEADACHE or DISCOMFORT; Start 01/21/17 at 20:45; Stop 02/20/17 at 20:44 Al Hydrox/Mg Hydrox/Simethicone (Mylanta) 30 ml Q4HP PRN PO HEARTBURN/ INDIGESTION; Start 01/21/17 at 20:45; Stop 02/20/17 at 20:44 Escitalopram Oxalate (Lexapro) 10 mg DAILY PO Last administered on 01/25/17 09:02; Start 01/22/17 at 09:00; Stop 01/25/17 at 16:27; Status DC Home Med (Med Rec Complete!) ASDIRECTED XX ; Start 01/21/17 at 21:15; Stop 01/21/17 at 21:15; Status DC Lamotrigine (LaMICtal) 25 mg BID PO Last administered on 01/25/17 09:02; Start 01/22/17 at 09:00; Stop 01/25/17 at 16:27; Status DC Lurasidone HCl (Latuda) 20 mg QHS PO Last administered on 01/25/17 21:42; Start 01/25/17 at 21:00; Stop 02/24/17 at 20:59 Lurasidone HCl (Latuda) 20 mg QHS PO ; Start 01/25/17 at 21:00; Stop 02/24/17 at 20:59; Status UNV Magnesium Hydroxide (Milk Of Magnesia) 30 ml DAILYPRN PRN PO CONSTIPATION; Start 01/21/17 at 20:45; Stop 02/20/17 at 20:44 Quetiapine Fumarate (SEROquel) 25 mg TID PRN PO ANXIETY/AGITATION; Start at 11:15; Stop 02/21/17 at 11:14 Trazodone HCl (Desyrel) 50 mg QHSP PRN PO INSOMNIA Last administered on t 22:52; Start 01/21/17 at 20:45; Stop 02/20/17 at 20:44 Allergies Coded Allergies: No Known Allergies (Unverified , 05/12/16) AYALA GILL MD Jan 26, 2017 13:25
[2017-01-26 18:00] VITALS: BP 128/62
[2017-01-26] MEDS: LURASIDONE HCL 40 MG TAB (LATUDA) PO SCH (21:23)
[2017-01-26] MEDS: traZODone 50 MG TAB PO PRN (21:23)
[2017-01-27 06:56] VITALS: BP 126/59
--- NOTE | 2017-01-27 10:45 | MHIPNPDOC ---
[facility] Progress Note Progress Note DATE OF SERVICE: 01/27/17 HISTORY: Patient is tolerating the latuda well, denies noticeable side effects. Reports good sleep, OK mood, denies SI intent and plan, motivated to continue treatment outpatient. Patient counseled about schizoaffective. VITAL SIGNS: See below. NEW TEST RESULTS: NA CURRENT MEDICATIONS: See below. MENTAL STATUS EXAMINATION: Behavior: cooperative, slightly odd but related Speech: restricted tone, normal volume Thought processes including: linear Thought content: appropriate to conversation Judgment: fair Insight: fair Orientation: grossly oriented Mood: good Affect: anxious, restricted range Diagnosis 1. Schizoaffective disorder PLAN: - Continue latuda 40 mg qhs for psychosis - Continue trazodone 50 mg by mouth at bedtime as needed for insomnia. - PRNs: MOM, mylanta, tylenol 25 minutes spent on pt Vital Signs Vital Signs Date Time Temp Pulse Resp B/P (MAP) Pulse Ox O2 Delivery O2 Flow Rate FiO2 01/27/17 06:56 96.7 58 18 126/59 (81) Room Air 01/21/17 22:58 96 Current Medications Current Medications Acetaminophen (Tylenol Tab) 650 mg Q6HP PRN PO HEADACHE or DISCOMFORT; Start 01/21/17 at 20:45; Stop 02/20/17 at 20:44 Al Hydrox/Mg Hydrox/Simethicone (Mylanta) 30 ml Q4HP PRN PO HEARTBURN/ INDIGESTION; Start 01/21/17 at 20:45; Stop 02/20/17 at 20:44 Escitalopram Oxalate (Lexapro) 10 mg DAILY PO Last administered on 01/25/17 09:02; Start 01/22/17 at 09:00; Stop 01/25/17 at 16:27; Status DC Home Med (Med Rec Complete!) ASDIRECTED XX ; Start 01/21/17 at 21:15; Stop 01/21/17 at 21:15; Status DC Lamotrigine (LaMICtal) 25 mg BID PO Last administered on 01/25/17 09:02; Start 01/22/17 at 09:00; Stop 01/25/17 at 16:27; Status DC Lurasidone HCl (Latuda) 20 mg QHS PO ; Start 01/25/17 at 21:00; Stop 02/24/17 at 20:59; Status UNV Lurasidone HCl (Latuda) 20 mg QHS PO Last administered on 01/25/17 21:42; Start 01/25/17 at 21:00; Stop 01/26/17 at 13:23; Status DC Lurasidone HCl (Latuda) 40 mg QHS PO Last administered on 01/26/17 21:23; Start 01/26/17 at 21:00; Stop 02/25/17 at 20:59 Magnesium Hydroxide (Milk Of Magnesia) 30 ml DAILYPRN PRN PO CONSTIPATION; Start 01/21/17 at 20:45; Stop 02/20/17 at 20:44 Quetiapine Fumarate (SEROquel) 25 mg TID PRN PO ANXIETY/AGITATION; Start at 11:15; Stop 01/26/17 at 13:23; Status DC Trazodone HCl (Desyrel) 50 mg QHSP PRN PO INSOMNIA Last administered on 21:23; Start 01/21/17 at 20:45; Stop 02/20/17 at 20:44 Allergies Coded Allergies: No Known Allergies (Unverified , 05/12/16) AYALA GILL MD Jan 27, 2017 10:45
[2017-01-27 18:06] VITALS: BP 137/78
[2017-01-27] MEDS: LURASIDONE HCL 40 MG TAB (LATUDA) PO SCH (21:07)
[2017-01-27] MEDS: traZODone 50 MG TAB PO PRN (23:00)
[2017-01-28 06:37] VITALS: BP 118/53
[2017-01-28] MEDS ORDERED: LATU40TA PO (08:25)
--- NOTE | 2017-01-28 08:35 | MHDSPDOC ---
[facility] Discharge Summary Discharge Summary DATE OF ADMISSION: Jan 21, 2017 at 20:40 DATE OF DISCHARGE: DISCHARGE DIAGNOSES: 1. . 2. . REASON FOR ADMISSION: 21 yo M, PPH of schizoaffective, with several prior psychiatric hospitalizations , no prior SA, presents for SI. According to Dr. Conrad's 01/22/17 note: " Apparently, he was having suicidal thoughts before admission. He picked up a knife and threatened to kill himself while he was at home. His was able to talk the patient into giving her the knife and she called the police. The patient reports that while his was outside to meet the police he took three tablets of Seroquel as he was "hearing voices" and "I wanted it to stop". He said he flushed the remaining down the toilet. He denied to the ED staff that he this was a suicide attempt, but that he took the Seroquel as directed by his outpatient provider when he has the voices. During the interview today, the patient reports that he has frequent mood swings. They are short in time. The patient reports that all of a sudden mostly of the time out of the blue he feels depressed. He will stay depressed for a few hours and then return to normal mood. He also reports that he would switch to a "angry state". He says that many times it is because of his negative thinking or feeling frustrated. Again, this feeling of anger will last for about an hour. The patient also reports feeling frustrated with personnel at his unit because "they take my illness as a joke". "Last time when I was discharged from the hospital they asked how my vacation was". The patient says that he is in the process of being medically boarded. The patient says that he has auditory hallucinations. He says that he hears males and female and he cannot recognize who the voices belong to. They are not command in nature. They are not mean to him. He has the voices approximately every other day. The patient also reports that during his first admission to our unit he was having visual hallucinations, but the medications helped him. He is currently taking Lexapro 10 mg by mouth every morning, Seroquel 25 mg by mouth every 6 hours as needed for anxiety, agitation and auditory hallucinations and takes another medication at bedtime, but does not remember the name and it is not in our records. " Patient goes into more detail about his illness several days after admission. Patient has heard intermittent AH over the last year, mostly of incoherent voices. Occasional AH of human figures. AVH triggered by stress, not associated with shakira. Patient describes episodes lasting 3 days or so in which he would be hyperactive, elated, hyperverbal, grandiose, with little to no sleep. These episodes started about a year ago as well, onset after his psychotic symptoms. Patient was on outpatient latuda 20 mg qhs, and was doing well on it, but missed a dose, and began having AH with SI the day before admission. CONSULTANTS INVOLVED: NA TREATMENT AND PROGRESS ON THE UNIT: The patient reports doing well in the past when he was on latuda. Patient was taken off of the lexapro and seroquel on the unit, and put on latuda 20 mg qhs for psychosis. The patient had not experienced any AH since admission, and his mood and organization improved when he first started antipsychotic medications on the unit. The latuda was titrated to 40 mg qhs because that is the dose he was on outpatient before admission. DISCHARGE ASSESSMENT: Pt was euthymic, denied SI intent and plan, without AVH, without manic symptoms, and motivated to continue outpatient treatment. MENTAL STATUS EXAMINATION ON DISCHARGE: Behavior: cooperative, calm, related Speech normal RRVT Thought processes including: linear Thought content: appropriate to conversation Judgment: fair Insight: fair Orientation to AAOx3 Mood: good Affect: euthymic, appropriate MEDICATIONS ON DISCHARGE: - latuda 40 mg qhs for psychosis PLAN/FOLLOWUP ARRANGEMENTS: outpt appt at [facility] The amount of time spent in the coordination of care for this patient was approximately 20 minutes. Vital Signs/I&Os Vital Signs Date Time Temp Pulse Resp B/P (MAP) Pulse Ox O2 Delivery O2 Flow Rate FiO2 01/28/17 06:37 98.0 54 18 118/53 (74) Room Air Medications Scheduled Lurasidone Hydrochloride (Latuda) 40 Mg Tab, 40 MG PO QHS for SEE LABEL COMMENTS , #7 Allergies Coded Allergies: No Known Allergies (Unverified , 05/12/16) AYALA GILL MD Jan 28, 2017 08:35
== END 2017-01-28 12:55 | disposition home or self-care (01) | DRG 885 ==
LOC: M ED 12:06 → M ED INP 20:40 → M PSY 23:06
PROVIDERS: ADMIT Psychiatry & Neurology Psychiatry; ATTEND Psychiatry & Neurology Psychiatry
DX: F25.9 Schizoaffective disorder, unspecified (principal); F10.11 Alcohol abuse, in remission